=== PATIENT | male | born 1965 | race Caucasian/White ===

== ENCOUNTER 2020-11-12 08:35 | Inpatient (IN) | payer MEDICAID, OTHER ==
[~2020-11-12] VITALS: Ht 167.6 cm; Wt 98.0 kg
--- NOTE | 2020-11-12 08:50 | NUR ---
SBAR RECEIVED FROM JASVIR PERDOMO. PT SLEEPING, SIDE RAIL UPX2, NADN. CALL LIGHT ON PT LAP. BEDSIDE
--- NOTE | 2020-11-12 08:54 | NUR ---
ANNE MARIE sanchez FD from [facility] for alcohol withdrawl. Pt with hx of alcoholic hepatitis, IVDA, GERD and umbilical hernia BIB his brother who stated he hasn't had a drink of alcohol in 2 days, prior to that he was drinking every day. Hx of DT's. Joanne Antonio: 1Liter NS, 6mg po ativan, 2mg ativan IV-last dose 0745am. Pt arrives to this ED; forehead diaphoresis, confused, a/ox1. EKG done on arrival.
[2020-11-12] MEDS ORDERED: POTASSIUM CHLORIDE 20 MEQ, MAGNESIUM SULFATE 1 GM, FOLIC ACID 1 MG, THIAMINE 200 MG, MV... IV ONE (09:30)
--- NOTE | 2020-11-12 09:31 | NUR ---
SM BEDSIDE, ANSWERED QUESTIONS
[2020-11-12 09:40] LABS: ANION GAP 5 mmol/L (5-15); CALCIUM 8.4 mg/dL (8.5-10.1); CHLORIDE 111 mmol/L (98-107); CREATININE 0.69 mg/dL (0.7-1.3)
--- NOTE | 2020-11-12 10:17 | NUR ---
PT CONTINUES TO SLEEP, SIDERAIL UPX2. VSS, NADN. CALL LIGHT ON LAP.
--- NOTE | 2020-11-12 10:39 | NUR ---
SBAR REPORT GIVEN TO PUJA. ANSWERED QUESTIONS. TOLD HER [facility] VISUALIZED PT, AND WAS CONTEMPLATING SENDING PT TO HIGHER LEVEL OF CARE, HIS SBP IS IN 90'S. PT IS PROTECTING AIRWAY AND AT THIS TIME [facility] HAS ACCEPTED HIM FOR TELE2.
[2020-11-12] MEDS ORDERED: ONDANSETRON 2MG/ML, 2ML IVPush PRN (11:00)
[2020-11-12] MEDS ORDERED: hydrALAzine 20 MG/ML, 1ML IVPush PRN (11:00)
[2020-11-12] MEDS ORDERED: LORazepam 2 MG/ML, 1ML IV PRN ×5 (11:00)
[2020-11-12] MEDS ORDERED: LORazepam 0.5MG TABLET PO PRN (11:00)
[2020-11-12] MEDS ORDERED: LORazepam 1MG TABLET PO PRN ×4 (11:00)
[2020-11-12] MEDS ORDERED: POTASSIUM CHLORIDE 20 MEQ TAB.ER.PRT PO ONE (11:00)
[2020-11-12] MEDS ORDERED: LABETALOL 5MG/ML, 20ML IVPush PRN (11:00)
[2020-11-12] MEDS ORDERED: ONDANSETRON ODT 4 MG PO PRN (11:00)
[2020-11-12] MEDS ORDERED: POTASSIUM CHLORIDE 40 MEQ in SODIUM CHLORIDE 0.9% 500 ML IV ONE (11:30)
[2020-11-12 11:41] VITALS: BP 113/75
[2020-11-12] MEDS: DIAZEPAM 10 MG TABLET PO SCH ×2 (11:43→18:13)
[2020-11-12 13:20] LABS: ALBUMIN 2.6 g/dL (3.4-5.0); BILIRUBIN, DIRECT 4.8 mg/dL (0.1-0.2); BILIRUBIN,INDIRECT 2.8 mg/dL (0.0-2.0); BILIRUBIN,TOTAL 7.6 mg/dL (0.2-1.0)
[2020-11-12 17:02] LABS: MICROSCOPIC INDICATED
[2020-11-12 17:11] LABS: AMPHETAMINE SCREEN, URINE Negative (Negative); BARBITURATE SCREEN, URINE Negative (Negative); BENZODIAZEPINE SCREEN, URINE Negative (Negative); CANNABINOID SCREEN, URINE Negative (Negative); COCAINE SCREEN, URINE Negative (Negative); METHADONE SCREEN, URINE Negative (Negative); OPIATE SCREEN, URINE Negative (Negative)
[2020-11-12 20:00] VITALS: BP 91/52
[2020-11-13] MEDS: DIAZEPAM 10 MG TABLET PO SCH ×2 (05:24)
[2020-11-13 06:02] LABS: MEAN CORPUSCULAR HEMOGLOBIN 36.9 pg (27.5-34.5); MEAN CORPUSCULAR HGB CONC 33.4 g/dL (33.2-36.2); MEAN PLATELET VOLUME 8.6 fL (7.4-10.4); PLATELET COUNT 55 x10^3/uL (130-400); RED BLOOD COUNT 3.46 x10^6/uL (4.38-5.82); RED CELL DISTRIBUTION WIDTH 14.8 % (9.4-14.8)
[2020-11-13 06:14] LABS: ALANINE AMINOTRANSFERASE 30 U/L (12-78); ALBUMIN 2.5 g/dL (3.4-5.0); ANION GAP 7 mmol/L (5-15); CALCIUM 8.3 mg/dL (8.5-10.1); CHLORIDE 112 mmol/L (98-107)
[2020-11-13 06:17] LABS: ALKALINE PHOSPHATASE 138 U/L (45-117); BILIRUBIN,TOTAL 7.8 mg/dL (0.2-1.0); CREATININE 0.52 mg/dL (0.7-1.3); TOTAL PROTEIN 5.7 g/dL (6.4-8.2)
[2020-11-13 07:15] LABS: <PLATELET ESTIMATE> DECREASED; <PLT MORPHOLOGY> NORMAL PLT MORPH; ANISOCYTOSIS 1+; EOS#(MANUAL) 0.04 x10^3/uL (0.0-0.4); EOS% (MANUAL) 1 % (1-7); LYMPH#(MANUAL) 0.68 x10^3/uL (1-3.4); LYMPHS% (MANUAL) 17 % (22-44); MONOS#(MANUAL) 0.48 x10^3/uL (0.3-2.7); MONOS% (MANUAL) 12 % (2-9); SEGS% (MANUAL) 70 % (42-75)
[2020-11-13] MEDS ORDERED: POTASSIUM CHLORIDE 20 MEQ TAB.ER.PRT PO ONE (08:30)
[2020-11-13] MEDS: FOLIC ACID 1 MG TABLET PO SCH (10:45)
[2020-11-13] MEDS: ACETAMINOPHEN 325 MG TABLET PO PRN ×2 (10:45→17:07)
[2020-11-13] MEDS ORDERED: DIAZEPAM 5 MG TABLET PO SCH (11:00)
[2020-11-13 11:48] LABS: INTERNATIONAL NORMALIZED RATIO 1.6 (0.93-1.1); PROTHROMBIN TIME 16.7 Seconds (9.6-11.5)
[2020-11-13 12:39] VITALS: BP 96/61
[2020-11-13 19:18] VITALS: BP 135/73
[2020-11-13 23:56] VITALS: BP 101/62
[2020-11-14 00:31] VITALS: BP 98/61
[2020-11-14] MEDS: ACETAMINOPHEN 325 MG TABLET PO PRN ×2 (04:52→20:46)
[2020-11-14 06:03] LABS: BASOPHILS % (AUTO) 1 % (0-1); EOSINOPHILS % (AUTO) 2 % (1-7); LYMPHOCYTES % (AUTO) 38 % (22-44); MEAN CORPUSCULAR HEMOGLOBIN 37.1 pg (27.5-34.5); MEAN CORPUSCULAR HGB CONC 33.7 g/dL (33.2-36.2); MONOCYTES % (AUTO) 13 % (2-9); NEUTROPHILS % (AUTO) 46 % (42-75); PLATELET COUNT 64 x10^3/uL (130-400); RED BLOOD COUNT 3.32 x10^6/uL (4.38-5.82); RED CELL DISTRIBUTION WIDTH 14.7 % (9.4-14.8)
[2020-11-14 07:07] LABS: ALANINE AMINOTRANSFERASE 33 U/L (12-78); ALBUMIN 2.4 g/dL (3.4-5.0); ALKALINE PHOSPHATASE 157 U/L (45-117); BILIRUBIN,TOTAL 6.7 mg/dL (0.2-1.0); CALCIUM 8.2 mg/dL (8.5-10.1); TOTAL PROTEIN 5.7 g/dL (6.4-8.2)
[2020-11-14 07:30] LABS: ANION GAP 7 mmol/L (5-15); CHLORIDE 107 mmol/L (98-107)
[2020-11-14 07:53] VITALS: BP 103/68
[2020-11-14] MEDS: THIAMINE 100 MG in DEXTROSE 5% 50 ML IVPB SCH (09:53)
[2020-11-14] MEDS: NS + 20MEQ KCL 1,000 ML IV SCH ×2 (09:53→17:04)
[2020-11-14] MEDS: FOLIC ACID 1 MG TABLET PO SCH (09:53)
[2020-11-14] MEDS ORDERED: POTASSIUM CHLORIDE 20 MEQ TAB.ER.PRT PO ONE (10:30)
[2020-11-14 11:10] LABS: CHOL/HDL RATIO 9.9
[2020-11-14 11:21] LABS: LDL/HDL RATIO 7.2 (0.5-3.0)
[2020-11-14 12:09] VITALS: BP 96/50
[2020-11-14 19:44] VITALS: BP 103/66
[2020-11-15] MEDS: NS + 20MEQ KCL 1,000 ML IV SCH ×3 (02:28→22:37)
[2020-11-15 02:31] VITALS: BP 112/72
[2020-11-15 05:38] LABS: BASOPHILS % (AUTO) 3 % (0-1); EOSINOPHILS % (AUTO) 2 % (1-7); LYMPHOCYTES % (AUTO) 35 % (22-44); MEAN CORPUSCULAR HEMOGLOBIN 37.2 pg (27.5-34.5); MEAN CORPUSCULAR HGB CONC 33.3 g/dL (33.2-36.2); MEAN PLATELET VOLUME 7.7 fL (7.4-10.4); MONOCYTES % (AUTO) 15 % (2-9); NEUTROPHILS % (AUTO) 46 % (42-75); PLATELET COUNT 52 x10^3/uL (130-400); RED BLOOD COUNT 2.51 x10^6/uL (4.38-5.82); RED CELL DISTRIBUTION WIDTH 15.1 % (9.4-14.8)
[2020-11-15 06:51] LABS: ALANINE AMINOTRANSFERASE 32 U/L (12-78); ALBUMIN 2.3 g/dL (3.4-5.0); ANION GAP 6 mmol/L (5-15); CHLORIDE 112 mmol/L (98-107); CREATININE 0.46 mg/dL (0.7-1.3)
[2020-11-15 06:53] VITALS: BP 115/75
[2020-11-15 06:53] LABS: ALKALINE PHOSPHATASE 143 U/L (45-117); BILIRUBIN,TOTAL 6.9 mg/dL (0.2-1.0); TOTAL PROTEIN 5.5 g/dL (6.4-8.2)
[2020-11-15] MEDS: FOLIC ACID 1 MG TABLET PO SCH (09:19)
[2020-11-15] MEDS: THIAMINE 100 MG in DEXTROSE 5% 50 ML IVPB SCH (09:20)
[2020-11-15] MEDS ORDERED: OMNIPAQUE 350 MG/ML, 75ML BOTTLE ONE (11:39)
[2020-11-15 12:07] VITALS: BP 134/90
[2020-11-15] MEDS: LACTULOSE 20 GM/30 ML UDC PO SCH ×3 (14:23→21:00)
[2020-11-15] MEDS: ACETAMINOPHEN 325 MG TABLET PO PRN (20:00)
[2020-11-15 20:12] VITALS: BP 99/62
[2020-11-16 00:52] VITALS: BP 104/65
[2020-11-16 05:33] LABS: BASOPHILS % (AUTO) 2 % (0-1); EOSINOPHILS % (AUTO) 2 % (1-7); LYMPHOCYTES % (AUTO) 23 % (22-44); MEAN CORPUSCULAR HEMOGLOBIN 37.5 pg (27.5-34.5); MEAN CORPUSCULAR HGB CONC 33.9 g/dL (33.2-36.2); MEAN PLATELET VOLUME 7.6 fL (7.4-10.4); MONOCYTES % (AUTO) 17 % (2-9); NEUTROPHILS % (AUTO) 55 % (42-75); PLATELET COUNT 77 x10^3/uL (130-400); RED BLOOD COUNT 3.32 x10^6/uL (4.38-5.82); RED CELL DISTRIBUTION WIDTH 15.6 % (9.4-14.8)
[2020-11-16 05:52] LABS: ALANINE AMINOTRANSFERASE 33 U/L (12-78); ALBUMIN 2.3 g/dL (3.4-5.0); ANION GAP 5 mmol/L (5-15); CALCIUM 8.2 mg/dL (8.5-10.1); CHLORIDE 112 mmol/L (98-107); CREATININE 0.45 mg/dL (0.7-1.3)
[2020-11-16 05:54] LABS: ALKALINE PHOSPHATASE 135 U/L (45-117); BILIRUBIN,TOTAL 7.2 mg/dL (0.2-1.0); TOTAL PROTEIN 5.6 g/dL (6.4-8.2)
[2020-11-16] MEDS: NS + 20MEQ KCL 1,000 ML IV SCH (06:20)
[2020-11-16 07:30] VITALS: BP 103/66
[2020-11-16] MEDS: FOLIC ACID 1 MG TABLET PO SCH (07:43)
[2020-11-16] MEDS: ACETAMINOPHEN 325 MG TABLET PO PRN ×2 (07:43→15:41)
[2020-11-16] MEDS: LACTULOSE 20 GM/30 ML UDC PO SCH ×3 (09:23→21:00)
[2020-11-16] MEDS: THIAMINE 100 MG in DEXTROSE 5% 50 ML IVPB SCH (09:23)
[2020-11-16 12:55] VITALS: BP 102/65
[2020-11-16 19:03] VITALS: BP 93/60
[2020-11-17 00:21] VITALS: BP 98/62
[2020-11-17 04:56] LABS: BASOPHILS % (AUTO) 3 % (0-1); EOSINOPHILS % (AUTO) 3 % (1-7); LYMPHOCYTES % (AUTO) 28 % (22-44); MEAN CORPUSCULAR HEMOGLOBIN 37.1 pg (27.5-34.5); MEAN CORPUSCULAR HGB CONC 33.8 g/dL (33.2-36.2); MEAN PLATELET VOLUME 7.7 fL (7.4-10.4); MONOCYTES % (AUTO) 16 % (2-9); NEUTROPHILS % (AUTO) 50 % (42-75); PLATELET COUNT 86 x10^3/uL (130-400); RED BLOOD COUNT 3.47 x10^6/uL (4.38-5.82); RED CELL DISTRIBUTION WIDTH 15.3 % (9.4-14.8)
[2020-11-17 05:10] LABS: ALBUMIN 2.3 g/dL (3.4-5.0); ANION GAP 7 mmol/L (5-15); CALCIUM 8.4 mg/dL (8.5-10.1); CHLORIDE 111 mmol/L (98-107)
[2020-11-17 05:13] LABS: ALANINE AMINOTRANSFERASE 33 U/L (12-78); ALKALINE PHOSPHATASE 145 U/L (45-117); BILIRUBIN,TOTAL 6.8 mg/dL (0.2-1.0); CREATININE 0.42 mg/dL (0.7-1.3); TOTAL PROTEIN 5.7 g/dL (6.4-8.2)
[2020-11-17 06:47] VITALS: BP 117/76
[2020-11-17] MEDS: FOLIC ACID 1 MG TABLET PO SCH (08:27)
[2020-11-17] MEDS: LACTULOSE 20 GM/30 ML UDC PO SCH (08:27)
[2020-11-17] MEDS: THIAMINE 100 MG in DEXTROSE 5% 50 ML IVPB SCH (08:27)
[2020-11-17] MEDS ORDERED: LACT20SO13 PO (11:26)
[2020-11-17] MEDS ORDERED: FOLI1TAB32 PO (11:26)
== END 2020-11-17 12:05 | disposition home or self-care (01) | DRG 280 ==
LOC: SUATTDRO 09:21 → ED 10:41 → 4WST 11:17
PROVIDERS: ADMIT Family Medicine; ATTEND Family Medicine
PROC: 0T9B70Z Drainage of Bladder with Drainage Device, Via Natural or Artificial Opening (ICD-10-PCS; principal; 2020-11-12)
DX: K70.30 Alcoholic cirrhosis of liver without ascites (principal); G92 Toxic encephalopathy; K85.20 Alcohol induced acute pancreatitis without necrosis or infection; F10.231 Alcohol dependence with withdrawal delirium; K76.6 Portal hypertension; F23 Brief psychotic disorder; E87.6 Hypokalemia; K42.9 Umbilical hernia without obstruction or gangrene; J47.9 Bronchiectasis, uncomplicated; R16.1 Splenomegaly, not elsewhere classified; Z79.899 Other long term (current) drug therapy
CPT/HCPCS: 36415; 71260; 74176; 76700; 80048; 80053; 80061; 80074; 80076; 80307; 81001; 82140; 82607; 83690; 83735; 84100; 84145; 85025; 85610; 93005; 96374; 96375; G0378; J3411; J3475; J3480; J7042; Q9967; J7040